=== PATIENT | female | born 1990 | race American Indian/Alaskan Native ===

== ENCOUNTER 2018-12-30 02:29 | Emergency (ER) | payer MEDICAID, OTHER ==
[2018-12-30 04:19] LABS: Basophils # (Auto) 0.1 K/mm3 (0.0-0.1); Basophils % (Auto) 0.7 % (0.0-1.8); Eosinophils # (Auto) 0.2 K/mm3 (0.0-0.4); Eosinophils % (Auto) 1.8 % (0.0-4.3); Hematocrit 33.9 % (30.3-42.9); Hemoglobin 10.8 gm/dl (10.1-14.3); Lymphocytes # (Auto) 3.1 K/mm3 (1.2-5.4); Lymphocytes % (Auto) 34.9 % (13.4-35.0); Mean Corpuscular HGB Conc 32 % (30-34); Mean Corpuscular Volume 75 fl (79-97); Monocytes # (Auto) 0.7 K/mm3 (0.0-0.8); Monocytes % (Auto) 7.7 % (0.0-7.3); Platelet Count 280 K/mm3 (140-440); Red Blood Count 4.54 M/mm3 (3.65-5.03); Red Cell Distribution Width 15.4 % (13.2-15.2)
[2018-12-30 04:38] LABS: Alanine Aminotransferase 10 units/L (7-56); Albumin 3.9 g/dL (3.9-5); BUN/Creatinine Ratio 15; Blood Urea Nitrogen 9 mg/dL (7-17); Calcium 8.7 mg/dL (8.4-10.2); Hemolysis Index 3
[2018-12-30 04:53] LABS: Bilirubin,Urine NEG (Negative); Blood,Urine NEG (Negative); Color,Urine Yellow (Yellow); Mucus,Urine 2+ /HPF; Protein,Urine <15 mg/dL mg/dL (Negative); Urobilinogen,Urine < 2.0 mg/dL (<2.0)
--- NOTE | 2018-12-30 06:09 | Emergency Department Report ---
ED Abdominal Pain HPI - General Chief Complaint: Abdominal Pain Stated Complaint: ABD PAIN Time Seen by Provider: 12/30/18 06:07 Source: patient Mode of arrival: Ambulatory Limitations: No Limitations - History of Present Illness Initial Comments: A 8 year old female who tells me she thinks she is having an allergic reaction from a plan B pill which she took in October. She complains of pain in both her shoulders and her lower back and her lower abdomen. She does have some urinary frequency and occasional nausea. She has not vomited. There has been no fever. She does not complain of vaginal discharge but states her periods have been irregular since this plan the pill. She did not follow-up with the driver license agent and states she is "new in the area". She states that she does not take any current medication. She gives no history of prior UTI or MACHINE I CUTTER infection nor is complaining of discharge. MD Complaint: abdominal pain -: Gradual, week(s) Location: suprapubic Radiation: none Migration to: no migration Quality: dull Consistency: now resolved Improves With: nothing Worsens With: nothing Associated Symptoms: denies other symptoms, nausea (not currently), other (frequency). denies: vomiting, diarrhea, fever, chills - Related Data Previous Rx's Medication Instructions Recorded Last Taken Type Naproxen [Naprosyn] 500 mg PO BID PRN #10 tablet 12/30/18 Unknown Rx Sulfamethoxazole/Trimethoprim 1 each PO BID #20 tablet 12/30/18 Unknown Rx [Bactrim DS TAB] Allergies Allergy/AdvReac Type Severity Reaction Status Date / Time No Known Allergies Allergy Unverified 12/30/18 02:34 ED Review of Systems ROS: Stated complaint: ABD PAIN Other details as noted in HPI Constitutional: denies: chills, fever Eyes: denies: eye pain, eye discharge, vision change ENT: denies: ear pain, throat pain Respiratory: denies: cough, shortness of breath, wheezing Cardiovascular: denies: chest pain, palpitations Endocrine: no symptoms reported Gastrointestinal: denies: abdominal pain, nausea, diarrhea Genitourinary: abnormal menses. denies: urgency, dysuria, discharge Musculoskeletal: denies: back pain, joint swelling, arthralgia Skin: denies: rash, lesions Neurological: denies: headache, weakness, paresthesias Psychiatric: denies: anxiety, depression Hematological/Lymphatic: denies: easy bleeding, easy bruising ED Past Medical Hx - Past Medical History Previous Medical History?: No - Surgical History Past Surgical History?: No - Social History Smoking Status: Never Smoker Substance Use Type: None - Medications Home Medications: Home Medications Medication Instructions Recorded Confirmed Last Taken Type Naproxen [Naprosyn] 500 mg PO BID PRN #10 tablet 12/30/18 Unknown Rx Sulfamethoxazole/Trimethoprim 1 each PO BID #20 tablet 12/30/18 Unknown Rx [Bactrim DS TAB] ED Physical Exam - General Limitations: No Limitations General appearance: alert, in no apparent distress, obese - Head Head exam: Present: atraumatic, normocephalic - Eye Eye exam: Present: normal appearance. Absent: scleral icterus - ENT ENT exam: Present: mucous membranes moist - Neck Neck exam: Present: normal inspection - Respiratory Respiratory exam: Present: normal lung sounds bilaterally. Absent: respiratory distress - Cardiovascular Cardiovascular Exam: Present: regular rate, normal rhythm. Absent: systolic murmur, diastolic murmur, rubs, gallop - GI/Abdominal GI/Abdominal exam: Present: soft, normal bowel sounds. Absent: distended, tenderness, guarding, rebound, rigid - Extremities Exam Extremities exam: Present: normal inspection, full ROM, normal capillary refill. Absent: tenderness (full range of motion of the shoulders without discomfort), pedal edema, joint swelling, calf tenderness - Back Exam Back exam: Present: normal inspection. Absent: CVA tenderness (R), CVA tenderness (L), muscle spasm, paraspinal tenderness, vertebral tenderness - Neurological Exam Neurological exam: Present: alert, oriented X3, CN II-XII intact. Absent: motor sensory deficit - Psychiatric Psychiatric exam: Present: normal affect, normal mood - Skin Skin exam: Present: warm, dry, intact, normal color. Absent: rash ED Course Vital Signs 12/30/18 12/30/18 02:34 03:46 Temperature 97.9 F Pulse Rate 99 H Respiratory 20 20 Rate Blood Pressure 179/87 O2 Sat by Pulse 100 98 Oximetry ED Medical Decision Making - Lab Data Result diagrams: 12/30/18 04:00 12/30/18 04:00 Laboratory Results - last 24 hr 12/30/18 12/30/18 12/30/18 04:00 04:00 04:00 WBC 8.9 RBC 4.54 Hgb 10.8 Hct 33.9 MCV 75 L MCH 24 L MCHC 32 RDW 15.4 H Plt Count 280 Lymph % (Auto) 34.9 Hendricks % (Auto) 7.7 H Eos % (Auto) 1.8 Baso % (Auto) 0.7 Lymph # 3.1 Hendricks # 0.7 Eos # 0.2 Baso # 0.1 Seg Neutrophils % 54.9 Seg Neutrophils # 4.9 Sodium 138 Potassium 3.8 Chloride 102.0 Carbon Dioxide 24 Anion Gap 16 BUN 9 Creatinine 0.6 L Estimated GFR > 60 BUN/Creatinine Ratio 15 Glucose 91 Calcium 8.7 Total Bilirubin 0.20 AST 15 ALT 10 Alkaline Phosphatase 77 Total Protein 7.4 Albumin 3.9 Albumin/Globulin Ratio 1.1 HCG, Qual Negative Urine Color Urine Turbidity Urine pH Ur Specific [place] Urine Protein Urine Glucose (UA) Urine Ketones Urine Blood Urine Nitrite Ur Reducing Substances Urine Bilirubin Urine Ictotest Urine Urobilinogen Ur Leukocyte Esterase Urine WBC (Auto) Urine RBC (Auto) U Epithel Cells (Auto) Urine Mucus 12/30/18 04:44 WBC RBC Hgb Hct MCV MCH MCHC RDW Plt Count Lymph % (Auto) Hendricks % (Auto) Eos % (Auto) Baso % (Auto) Lymph # Hendricks # Eos # Baso # Seg Neutrophils % Seg Neutrophils # Sodium Potassium Chloride Carbon Dioxide Anion Gap BUN Creatinine Estimated GFR BUN/Creatinine Ratio Glucose Calcium Total Bilirubin AST ALT Alkaline Phosphatase Total Protein Albumin Albumin/Globulin Ratio HCG, Qual Urine Color Yellow Urine Turbidity Slightly-cloudy Urine pH 6.0 Ur Specific [place] 1.027 Urine Protein <15 mg/dl Urine Glucose (UA) Neg Urine Ketones Tr Urine Blood Neg Urine Nitrite Neg Ur Reducing Substances Not Reportable Urine Bilirubin Neg Urine Ictotest Not Reportable Urine Urobilinogen < 2.0 Ur Leukocyte Esterase Lg Urine WBC (Auto) 10.0 H Urine RBC (Auto) 3.0 U Epithel Cells (Auto) 14.0 H Urine Mucus 2+ Critical care attestation.: If time is entered above; I have spent that time in minutes in the direct care of this critically ill patient, excluding procedure time. ED Disposition Clinical Impression: Irregular menses Acute cystitis Qualifiers: Hematuria presence: without hematuria Qualified Code(s): N30.00 - Acute cystitis without hematuria Disposition: DC-01 TO HOME OR SELFCARE Is pt being admited?: No Does the pt Need Aspirin: No Condition: Stable Instructions: Abdominal Pain (ED), Urinary Tract Infection in Women (ED) Additional Instructions: Follow up on your urine culture with driver license agent. Return any acute change or problem. Prescriptions: Sulfamethoxazole/Trimethoprim [Bactrim DS TAB] 1 each PO BID #20 tablet Naproxen [Naprosyn] 500 mg PO BID PRN #10 tablet PRN Reason: Pain, Moderate (4-6) Referrals: KEI BOLTON MD [Primary Care Provider] - 3-5 Days SUZY CLEARY MD [Staff Physician] - 2-3 Days Time of Disposition: 06:38
[2018-12-30] MEDS ORDERED: XYLOCAINE 1% MPF 5 mL INFILTRATI ONE (06:46)
[2018-12-30] MEDS ORDERED: ROCEPHIN IM ONE (06:46)
[2018-12-30] MEDS ORDERED: ROCEPHIN/NS 1 GM/50 ML 1 GM/50 ML BAG IV ONE (06:49)
[2018-12-30 08:03] VITALS: BP 160/89
== END 2018-12-30 08:45 | disposition home or self-care (01) ==
LOC: ED 02:29
DX: N30.00 Acute cystitis without hematuria (principal); N92.6 Irregular menstruation, unspecified
CPT/HCPCS: 36415; 80053; 81001; 84703; 85025; 87086; 96365; 99283; J0696